=== PATIENT | male | born 1980 | race Caucasian/White ===

== ENCOUNTER 2021-10-28 10:20 | Outpatient (CLI) | payer OTHER, SELFPAY ==
[2021-10-28 14:08] LABS: Cholesterol* 257 mg/dL (90-199)
[2021-10-28 14:09] LABS: HDL Cholesterol* 88 mg/dL (>=40); LDL Cholesterol Calculated 152 mg/dL (<100); Triglycerides* 85 mg/dL (40-149)
[2021-10-29 22:27] LABS: Glucose* 82 mg/dL (60-115)
== END 2021-10-28 10:21 | disposition home or self-care (01) ==
PROVIDERS: PCP Physician Assistant; Visit Provider Family Medicine
DX: Z13.1 Encounter for screening for diabetes mellitus (principal); Z13.6 Encounter for screening for cardiovascular disorders
CPT/HCPCS: 80061; 82947

== ENCOUNTER 2021-11-13 08:24 | Outpatient (CLI) | payer OTHER, SELFPAY | END 2021-11-13 08:25 | disposition home or self-care (01) | PROVIDERS: Visit Provider Internal Medicine | DX: Z12.11 Encounter for screening for malignant neoplasm of colon (principal); K63.5 Polyp of colon; K57.30 Diverticulosis of large intestine without perforation or abscess without bleeding | CPT/HCPCS: 45378; J2250; J3010 ==